=== PATIENT | female | born 1985 | race Caucasian/White ===

== ENCOUNTER 2021-09-22 09:16 | Emergency (ER) | payer OTHER ==
[~2021-09-22] VITALS: Ht 157.5 cm; Wt 49.0 kg
[~2021-09-22 09:16] MED LIST: LEVOTHYROXINE150 MCG PO; PRENATAL TABLE1 EAC1 PO; SYNTHROID50 MCG; VINACAL B PREN1 EACH
== END 2021-09-22 10:28 | disposition home or self-care (01) ==
LOC: ER 09:16
DX: R07.81 Pleurodynia (principal)

== ENCOUNTER 2022-02-01 22:18 | Emergency (ER) | payer OTHER ==
[~2022-02-01] VITALS: Ht 157.5 cm; Wt 47.6 kg
[2022-02-02] MEDS ORDERED: ZYNCOF 20-400120 ML PO (02:13)
[2022-02-02] MEDS ORDERED: ALBUTEROL2.5 MG/3 M IH (02:13)
== END 2022-02-02 | disposition home or self-care (01) ==
LOC: ER 22:18
DX: U07.1 COVID-19 (principal); R50.9 Fever, unspecified; Z91.013 Allergy to seafood; Z91.018 Allergy to other foods

== ENCOUNTER 2022-04-07 20:51 | Emergency (ER) | payer OTHER ==
[~2022-04-07] VITALS: Ht 157.5 cm; Wt 49.9 kg
[~2022-04-07 20:51] MED LIST changes: +ALBUTEROL2.5 MG/3 M IH; +ZYNCOF 20-400120 ML PO
[2022-04-08] MEDS ORDERED: KETO10TA2 PO (04:45)
== END 2022-04-08 05:01 ==
LOC: ER 20:51
DX: N83.209 Unspecified ovarian cyst, unspecified side (principal)

== ENCOUNTER 2023-02-10 13:17 | Emergency (ER) | payer OTHER ==
[~2023-02-10] VITALS: Ht 157.5 cm; Wt 48.5 kg
[~2023-02-10 13:17] MED LIST changes: +KETO10TA2 PO
== END 2023-02-10 16:25 | disposition home or self-care (01) ==
LOC: ER 13:17
DX: K52.9 Noninfective gastroenteritis and colitis, unspecified (principal); Z91.013 Allergy to seafood; Z91.041 Radiographic dye allergy status; J45.909 Unspecified asthma, uncomplicated; E03.9 Hypothyroidism, unspecified